=== PATIENT | male | born 1980 | race African-American/Black ===

== ENCOUNTER 2017-11-20 05:52 | Emergency (ER) | payer MEDICAID ==
[~2017-11-20] VITALS: Ht 180.3 cm; Wt 103.2 kg
[2017-11-20] MEDS ORDERED: IBUPROFEN 600MG TABLET PO ONE (07:00)
[2017-11-20 07:22] LABS: BASOPHILS % 0.3 % (0.0-2.0); EOSINOPHILS % 2.3 % (0.0-5.0); HEMATOCRIT. 37.2 % (42.0-52.0); HEMOGLOBIN. 12.5 g/dL (14.0-18.0); LYMPHOCYTES % 24.7 % (20.0-50.0); MEAN CORPUSCULAR HEMOGLOBIN 28.9 pg (28.0-32.0); MEAN PLATELET VOLUME 8.6 fl (7.4-10.4); MONOCYTES % 10.6 % (2.0-8.0); NEUTROPHILS % 62.1 % (40.0-76.0); PLATELET 239 x1000/uL (130-400); RED BLOOD CELL COUNT 4.33 mill/uL (4.7-6.1); RED CELL DISTRIBUTION WIDTH 14.2 % (11.6-14.6)
[2017-11-20 07:27] LABS: CHLORIDE 106 mEq/L (98-107)
[2017-11-20] MEDS ORDERED: ONDANSETRON 4MG ODT PO ONE (08:00)
[2017-11-20] MEDS ORDERED: MORPHINE SULFATE 10 MG/ML CPJ IM ONE (08:00)
[2017-11-20 10:24] VITALS: BP 120/75
== END 2017-11-20 10:31 | disposition home or self-care (01) ==
LOC: ER 05:58
DX: K52.9 Noninfective gastroenteritis and colitis, unspecified (principal); F17.200 Nicotine dependence, unspecified, uncomplicated
CPT/HCPCS: 36415; 74176; 80053; 83690; 85025; 96372; 99285; J2270; Q0162; Z7610

== ENCOUNTER 2018-03-06 14:33 | Emergency (ER) | payer MEDICAID ==
[~2018-03-06] VITALS: Ht 180.3 cm; Wt 100.0 kg
[2018-03-06] MEDS ORDERED: PREDNISONE 20MG TABLET PO STA (16:01)
[2018-03-06] MEDS ORDERED: IBUPROFEN 800MG TABLET PO ONE (16:15)
[2018-03-06] MEDS ORDERED: IPRATROPIUM/ALBUTEROL 0.5-3(2.5)MG/3ML NEB HHN ONE (16:15)
[2018-03-06] MEDS ORDERED: LEVOFLOXACIN 500MG TABLET PO ONE (16:15)
[2018-03-06 17:30] VITALS: BP 130/84
== END 2018-03-06 17:48 | disposition home or self-care (01) ==
LOC: ER 14:33
DX: R07.9 Chest pain, unspecified (principal); J40 Bronchitis, not specified as acute or chronic; F17.200 Nicotine dependence, unspecified, uncomplicated
CPT/HCPCS: 71045; 93005; 94640; 99284; J7512; J7620

== ENCOUNTER 2018-05-05 06:49 | Emergency (ER) | payer MEDICAID ==
[~2018-05-05] VITALS: Ht 177.8 cm; Wt 102.6 kg
[2018-05-05] MEDS ORDERED: IBUPROFEN 600MG TABLET PO ONE (09:15)
[2018-05-05 11:22] LABS: CLARITY URINE CLEAR (CLEAR); COLOR URINE YELLOW (YELLOW); KETONES URINE NEGATIVE (NEGATIVE); LEUKOCYTE ESTERASE URINE NEGATIVE (NEGATIVE); NITRITE URINE NEGATIVE (NEGATIVE); OCCULT BLOOD URINE NEGATIVE (NEGATIVE); PH URINE 6.5 (4.5-8.0); PROTEIN URINE NEGATIVE (NEGATIVE); SPECIFIC GRAVITY URINE 1.003 (1.005-1.030); UROBILINOGEN URINE 0.2 E.U./dL (0.2-1.0)
[2018-05-05 12:16] VITALS: BP 133/89
== END 2018-05-05 12:18 | disposition home or self-care (01) ==
LOC: ER 07:58
DX: M62.830 Muscle spasm of back (principal)
CPT/HCPCS: 99283

== ENCOUNTER 2018-05-27 23:26 | Emergency (ER) | payer MEDICAID ==
[~2018-05-27] VITALS: Ht 177.8 cm; Wt 130.0 kg
[2018-05-28 04:11] LABS: CHLORIDE 103 mEq/L (98-107)
[2018-05-28 04:12] LABS: BASOPHILS % 0.2 % (0.0-2.0); EOSINOPHILS % 0.6 % (0.0-5.0); HEMATOCRIT. 41.9 % (42.0-52.0); HEMOGLOBIN. 13.9 g/dL (14.0-18.0); LYMPHOCYTES % 27.5 % (20.0-50.0); MEAN CORPUSCULAR HEMOGLOBIN 29.3 pg (28.0-32.0); MEAN CORPUSCULAR VOLUME 88.4 fL (80.0-94.0); MEAN PLATELET VOLUME 9.5 fl (7.4-10.4); MONOCYTES % 8.7 % (2.0-8.0); PLATELET 265 x1000/uL (130-400); RED BLOOD CELL COUNT 4.74 mill/uL (4.7-6.1); RED CELL DISTRIBUTION WIDTH 14.4 % (11.6-14.6)
[2018-05-28 05:14] VITALS: BP 127/74
== END 2018-05-28 05:31 | disposition home or self-care (01) ==
LOC: ER 23:26
DX: R07.89 Other chest pain (principal); F17.210 Nicotine dependence, cigarettes, uncomplicated; Z71.6 Tobacco abuse counseling
CPT/HCPCS: 36415; 71045; 84484; 85379; 99284; 99406

== ENCOUNTER 2019-01-30 12:27 | Emergency (ER) | payer MEDICAID ==
[~2019-01-30] VITALS: Ht 177.8 cm; Wt 74.0 kg
[2019-01-30] MEDS ORDERED: ACETAMINOPHEN 325MG TABLET PO STA (15:10)
[2019-01-30 16:50] VITALS: BP 138/87
== END 2019-01-30 17:38 | disposition home or self-care (01) ==
LOC: ER 12:27
DX: R07.2 Precordial pain (principal)
CPT/HCPCS: 71045; 99283

== ENCOUNTER 2019-11-27 06:09 | Emergency (ER) | payer MEDICAID ==
[~2019-11-27] VITALS: Ht 177.8 cm; Wt 86.0 kg
[2019-11-27 06:14] VITALS: BP 140/100
== END 2019-11-27 06:57 | disposition home or self-care (01) ==
LOC: ER 06:09
DX: H11.32 Conjunctival hemorrhage, left eye (principal); R03.0 Elevated blood-pressure reading, without diagnosis of hypertension; Z87.828 Personal history of other (healed) physical injury and trauma
CPT/HCPCS: 99281; 99282

== ENCOUNTER 2019-12-10 06:36 | Emergency (ER) | payer MEDICAID ==
[~2019-12-10] VITALS: Ht 180.3 cm; Wt 82.0 kg
[2019-12-10 06:49] VITALS: BP 137/93
[2019-12-10] MEDS ORDERED: IBUPROFEN 600MG TABLET PO ONE (07:45)
== END 2019-12-10 08:09 | disposition home or self-care (01) ==
LOC: ER 06:36
DX: R19.7 Diarrhea, unspecified (principal); M79.18 Myalgia, other site
CPT/HCPCS: 99282

== ENCOUNTER 2020-01-07 09:19 | Emergency (ER) | payer MEDICAID ==
[~2020-01-07] VITALS: Ht 180.3 cm; Wt 91.0 kg
[2020-01-07] MEDS ORDERED: IBUPROFEN 600MG TABLET PO STA (09:47)
[2020-01-07 10:36] LABS: BASOPHILS % 0.5 % (0.0-2.0); EOSINOPHILS % 0.4 % (0.0-5.0); HEMATOCRIT. 41.3 % (42.0-52.0); HEMOGLOBIN. 14.5 g/dL (14.0-18.0); LYMPHOCYTES % 35.1 % (20.0-50.0); MEAN CORPUSCULAR HEMOGLOBIN 33.7 pg (28.0-32.0); MEAN CORPUSCULAR VOLUME 96.3 fL (80.0-94.0); MEAN PLATELET VOLUME 8.9 fl (7.4-10.4); PLATELET 204 x1000/uL (130-400); RED BLOOD CELL COUNT 4.29 mill/uL (4.7-6.1); RED CELL DISTRIBUTION WIDTH 12.6 % (11.6-14.6)
[2020-01-07 10:43] LABS: CHLORIDE 99 mEq/L (98-107)
[2020-01-07 10:48] LABS: ETHANOL BLOOD 96 mg/dL
[2020-01-07 11:07] LABS: *AMPHETAMINES SCREEN URINE NEGATIVE (NEGATIVE); *BARBITURATES SCREEN URINE NEGATIVE (NEGATIVE); *BENZODIAZEPINES SCREEN URINE NEGATIVE (NEGATIVE); *COCAINE SCREEN URINE NEGATIVE (NEGATIVE); METHADONE URINE SCREEN NEGATIVE (NEGATIVE); OPIATES URINE SCREEN NEGATIVE (NEGATIVE)
[2020-01-07 11:08] LABS: CANNABINOID URINE SCREEN PRESUMTIVE POSITIVE (NEGATIVE); PHENCYCLIDINE URINE SCREEN NEGATIVE (NEGATIVE)
[2020-01-07 12:24] VITALS: BP 146/96
== END 2020-01-07 12:31 | disposition home or self-care (01) ==
LOC: ER 09:19
DX: J45.909 Unspecified asthma, uncomplicated (principal)
CPT/HCPCS: 36415; 71045; 80053; 80305; 80320; 84484; 85025; 93005; 99285; G0480

== ENCOUNTER 2020-01-07 17:55 | Emergency (ER) | payer MEDICAID ==
[~2020-01-07] VITALS: Ht 172.7 cm; Wt 75.0 kg
[2020-01-07 18:22] VITALS: BP 173/114
== END 2020-01-07 19:15 | disposition home or self-care (01) ==
LOC: ER 17:55
DX: I10 Essential (primary) hypertension (principal); J45.909 Unspecified asthma, uncomplicated
CPT/HCPCS: 93005; 99283

== ENCOUNTER 2020-01-08 05:35 | Inpatient (IN) | payer MEDICAID ==
[~2020-01-08] VITALS: Ht 177.8 cm; Wt 73.9 kg
[2020-01-08] MEDS ORDERED: SODIUM CHLORIDE 0.9% 1,000 ML IV ONE (06:22)
[2020-01-08] MEDS ORDERED: CLONIDINE 0.1MG TABLET PO ONE (06:30)
[2020-01-08] MEDS ORDERED: ASPIRIN 81MG TABLET PO ONE (06:30)
[2020-01-08] MEDS ORDERED: NITROGLYCERIN 0.4MG TABLET SL SL PRN (06:30)
[2020-01-08 06:47] LABS: BASOPHILS % 0.4 % (0.0-2.0); EOSINOPHILS % 0.4 % (0.0-5.0); HEMATOCRIT. 41.4 % (42.0-52.0); HEMOGLOBIN. 14.5 g/dL (14.0-18.0); LYMPHOCYTES % 24.3 % (20.0-50.0); MEAN CORPUSCULAR HEMOGLOBIN 33.4 pg (28.0-32.0); MEAN CORPUSCULAR VOLUME 95.5 fL (80.0-94.0); MEAN PLATELET VOLUME 8.5 fl (7.4-10.4); MONOCYTES % 12.3 % (2.0-8.0); NEUTROPHILS % 62.6 % (40.0-76.0); PLATELET 170 x1000/uL (130-400); RED BLOOD CELL COUNT 4.33 mill/uL (4.7-6.1); RED CELL DISTRIBUTION WIDTH 12.8 % (11.6-14.6)
[2020-01-08 06:54] LABS: CHLORIDE 101 mEq/L (98-107)
[2020-01-08 06:57] LABS: ETHANOL BLOOD < 10 mg/dL
[2020-01-08 07:01] LABS: *AMPHETAMINES SCREEN URINE NEGATIVE (NEGATIVE); *BARBITURATES SCREEN URINE NEGATIVE (NEGATIVE); *BENZODIAZEPINES SCREEN URINE NEGATIVE (NEGATIVE); *COCAINE SCREEN URINE NEGATIVE (NEGATIVE); METHADONE URINE SCREEN NEGATIVE (NEGATIVE)
[2020-01-08 07:02] LABS: CANNABINOID URINE SCREEN NEGATIVE (NEGATIVE); OPIATES URINE SCREEN NEGATIVE (NEGATIVE); PHENCYCLIDINE URINE SCREEN NEGATIVE (NEGATIVE)
[2020-01-08 09:02] LABS: D-DIMER 0.41 mg/L FEU (<0.50); INR 1.2; PARTIAL THROMBOPLASTIN TIME 26.8 sec (23.4-31.0); PROTHROMBIN TIME 12.3 sec (9.6-11.0)
[2020-01-08] MEDS ORDERED: LORAZEPAM 0.5MG TABLET PO PRN (09:45)
[2020-01-08] MEDS ORDERED: IPRATROPIUM/ALBUTEROL 0.5-3(2.5)MG/3ML NEB ORI PRN (09:45)
[2020-01-08] MEDS ORDERED: ZOLPIDEM TARTRATE 5MG TABLET PO PRN (09:45)
[2020-01-08] MEDS ORDERED: GUAIFENESIN 200MG/10ML SUGAR FREE UDC PO PRN (09:45)
[2020-01-08] MEDS ORDERED: HALOPERIDOL LACTATE 5MG/ML VIAL IM PRN (09:45)
[2020-01-08] MEDS ORDERED: CLONIDINE 0.1MG TABLET PO PRN (09:45)
[2020-01-08] MEDS ORDERED: ONDANSETRON HCL 4MG/2ML INJ IV PRN (09:45)
[2020-01-08] MEDS ORDERED: KETOROLAC 15MG/ML VIAL IV PRN (09:45)
[2020-01-08] MEDS ORDERED: ACETAMINOPHEN 325MG TABLET PO PRN ×2 (09:45)
[2020-01-08] MEDS ORDERED: DOCUSATE SODIUM 100MG CAPSULE PO PRN (09:45)
[2020-01-08] MEDS ORDERED: MAGNESIUM/ALUMINUM HYDROXIDE/SIMETHICONE 30ML UDC PO PRN (09:45)
[2020-01-08] MEDS ORDERED: NA PHOS,M-B/NA PHOS,DI-BA ENEMA 118ML PR PRN (09:45)
[2020-01-08] MEDS ORDERED: ENOXAPARIN 40MG/0.4ML SYR SUBCUT SCH (10:00)
[2020-01-08 11:46] VITALS: BP 134/90
[2020-01-08 12:00] VITALS: BP 167/103
[2020-01-08] MEDS: DILTIAZEM HCL 60MG TABLET PO SCH ×2 (12:35→17:50)
[2020-01-08 16:00] VITALS: BP 147/106
[2020-01-08 16:42] LABS: CREATINE KINASE MB FRACTION < 1.0 ng/mL (0.5-3.6)
[2020-01-08 16:52] LABS: CREATINE KINASE 1245 IU/L (39-308)
[2020-01-08] MEDS ORDERED: POTASSIUM CHLORIDE 20MEQ/PACKET PO SCH (17:00)
[2020-01-08 20:00] VITALS: BP 138/96
[2020-01-08] MEDS ORDERED: METOPROLOL TARTRATE 25MG TABLET PO SCH (21:00)
[2020-01-08] MEDS ORDERED: FAMOTIDINE 20MG TABLET PO SCH (21:00)
[2020-01-09] MEDS ORDERED: ASPIRIN 325MG EC TABLET PO SCH (09:00)
== END 2020-01-08 20:15 | disposition left against medical advice (07) | DRG 207 ==
LOC: ER 05:35 → 8WST 08:09 → EDBEDREQ 08:12 → EDBEDREQTM 08:12 → ENRESERV 10:03
PROVIDERS: ADMIT Internal Medicine; ATTEND Internal Medicine
DX: R00.2 Palpitations (principal); R07.9 Chest pain, unspecified; E87.6 Hypokalemia; E87.1 Hypo-osmolality and hyponatremia; J45.909 Unspecified asthma, uncomplicated; Z53.29 Procedure and treatment not carried out because of patient's decision for other reasons; R79.89 Other specified abnormal findings of blood chemistry; R74.8 Abnormal levels of other serum enzymes; F41.9 Anxiety disorder, unspecified; I10 Essential (primary) hypertension; Z82.49 Family history of ischemic heart disease and other diseases of the circulatory system
CPT/HCPCS: 36415; 71045; 80053; 80061; 80305; 80320; 82550; 82553; 83036; 83880; 84484; 85025; 85379; 93005; 93970; 99285; J1650; J1885; J7030; G0480

== ENCOUNTER 2020-01-13 22:05 | Emergency (ER) | payer MEDICAID ==
[~2020-01-13] VITALS: Ht 177.8 cm; Wt 84.0 kg
[2020-01-13] MEDS ORDERED: IBUPROFEN 600MG TABLET PO STA (22:37)
[2020-01-13] MEDS ORDERED: SODIUM CHLORIDE 0.9% 1,000 ML IV ONE (22:37)
[2020-01-13 22:48] LABS: HEMATOCRIT. 34.4 % (42.0-52.0); HEMOGLOBIN. 11.8 g/dL (14.0-18.0); MEAN CORPUSCULAR HEMOGLOBIN 33.6 pg (28.0-32.0); MEAN CORPUSCULAR VOLUME 98.1 fL (80.0-94.0); MEAN PLATELET VOLUME 9.1 fl (7.4-10.4); PLATELET 191 x1000/uL (130-400); RED BLOOD CELL COUNT 3.51 mill/uL (4.7-6.1); RED CELL DISTRIBUTION WIDTH 12.9 % (11.6-14.6)
[2020-01-13 22:52] LABS: CHLORIDE 106 mEq/L (98-107)
[2020-01-13 22:57] LABS: ETHANOL BLOOD < 10 mg/dL
[2020-01-13 23:21] LABS: PLATELET ESTIMATE NORMAL
[2020-01-13 23:23] LABS: CLARITY URINE CLEAR (CLEAR); COLOR URINE YELLOW (YELLOW); KETONES URINE NEGATIVE (NEGATIVE); LEUKOCYTE ESTERASE URINE NEGATIVE (NEGATIVE); NITRITE URINE NEGATIVE (NEGATIVE); OCCULT BLOOD URINE NEGATIVE (NEGATIVE); PH URINE 5.5 (4.5-8.0); PROTEIN URINE NEGATIVE (NEGATIVE); SPECIFIC GRAVITY URINE 1.005 (1.005-1.030); UROBILINOGEN URINE 0.2 E.U./dL (0.2-1.0)
[2020-01-13 23:27] LABS: CREATINE KINASE 202 IU/L (39-308)
[2020-01-13 23:39] LABS: *AMPHETAMINES SCREEN URINE NEGATIVE (NEGATIVE); *BARBITURATES SCREEN URINE NEGATIVE (NEGATIVE); *COCAINE SCREEN URINE NEGATIVE (NEGATIVE); CANNABINOID URINE SCREEN NEGATIVE (NEGATIVE); PHENCYCLIDINE URINE SCREEN NEGATIVE (NEGATIVE)
[2020-01-13 23:40] LABS: METHADONE URINE SCREEN NEGATIVE (NEGATIVE); OPIATES URINE SCREEN NEGATIVE (NEGATIVE)
[2020-01-13 23:41] LABS: *BENZODIAZEPINES SCREEN URINE NEGATIVE (NEGATIVE)
[2020-01-14 01:21] VITALS: BP 127/70
== END 2020-01-14 01:27 | disposition home or self-care (01) ==
LOC: ER 22:05
DX: R07.89 Other chest pain (principal); J45.909 Unspecified asthma, uncomplicated
CPT/HCPCS: 36415; 71045; 80053; 80305; 80320; 81003; 82550; 84484; 85025; 93005; 99285; J7030; G0480

== ENCOUNTER 2020-02-20 18:31 | Emergency (ER) | payer OTHER, MEDICAID ==
[~2020-02-20] VITALS: Ht 180.3 cm; Wt 85.0 kg
[2020-02-20] MEDS ORDERED: ASPIRIN 81MG TABLET PO ONE (22:30)
[2020-02-20 23:21] LABS: BASOPHILS % 0.4 % (0.0-2.0); HEMATOCRIT. 40.4 % (42.0-52.0); LYMPHOCYTES % 23.4 % (20.0-50.0); MEAN CORPUSCULAR HEMOGLOBIN 31.7 pg (28.0-32.0); MEAN CORPUSCULAR VOLUME 91.4 fL (80.0-94.0); MEAN PLATELET VOLUME 7.8 fl (7.4-10.4); MONOCYTES % 9.2 % (2.0-8.0); PLATELET 265 x1000/uL (130-400); RED BLOOD CELL COUNT 4.42 mill/uL (4.7-6.1); RED CELL DISTRIBUTION WIDTH 13.4 % (11.6-14.6)
[2020-02-20 23:27] LABS: CHLORIDE 103 mEq/L (98-107)
[2020-02-20 23:36] LABS: CREATINE KINASE 211 IU/L (39-308)
[2020-02-21] MEDS ORDERED: POTASSIUM CHLORIDE 20MEQ TABLET SR PO SCH (00:30)
[2020-02-21] MEDS ORDERED: CLONIDINE 0.2MG TABLET PO ONE (01:00)
[2020-02-21 02:26] VITALS: BP 140/91
== END 2020-02-21 02:29 | disposition home or self-care (01) ==
LOC: ER 18:43
DX: I10 Essential (primary) hypertension (principal); R07.89 Other chest pain; F12.10 Cannabis abuse, uncomplicated
CPT/HCPCS: 36415; 71045; 80053; 82550; 83880; 84484; 85025; 93005; 99285; Z7610

== ENCOUNTER 2020-03-12 05:40 | Emergency (ER) | payer MEDICAID, OTHER ==
[2020-03-12] MEDS ORDERED: ONDANSETRON 4MG ODT PO ONE (07:30)
[2020-03-12 08:41] VITALS: BP 148/91
== END 2020-03-12 08:55 | disposition home or self-care (01) ==
LOC: ER 05:40
DX: K29.70 Gastritis, unspecified, without bleeding (principal); I10 Essential (primary) hypertension; F12.10 Cannabis abuse, uncomplicated; R06.02 Shortness of breath; R11.0 Nausea; R07.89 Other chest pain
CPT/HCPCS: 93005; 99283; Q0162

== ENCOUNTER 2020-03-18 00:33 | Emergency (ER) | payer OTHER ==
[~2020-03-18] VITALS: Ht 180.3 cm; Wt 84.0 kg
[2020-03-18 03:27] LABS: BASOPHILS % 0.3 % (0.0-2.0); EOSINOPHILS % 0.7 % (0.0-5.0); HEMATOCRIT. 38.2 % (42.0-52.0); HEMOGLOBIN. 12.7 g/dL (14.0-18.0); LYMPHOCYTES % 24.2 % (20.0-50.0); MEAN CORPUSCULAR HEMOGLOBIN 30.6 pg (28.0-32.0); MEAN CORPUSCULAR VOLUME 91.8 fL (80.0-94.0); MEAN PLATELET VOLUME 9.2 fl (7.4-10.4); MONOCYTES % 10.2 % (2.0-8.0); NEUTROPHILS % 64.6 % (40.0-76.0); PLATELET 196 x1000/uL (130-400); RED BLOOD CELL COUNT 4.16 mill/uL (4.7-6.1); RED CELL DISTRIBUTION WIDTH 14.4 % (11.6-14.6)
[2020-03-18 03:35] LABS: CHLORIDE 103 mEq/L (98-107)
[2020-03-18 04:45] VITALS: BP 129/80
== END 2020-03-18 05:53 | disposition home or self-care (01) ==
LOC: ER 00:33
DX: R07.89 Other chest pain (principal); I10 Essential (primary) hypertension
CPT/HCPCS: 36415; 71045; 80053; 84484; 85025; 93005; 99285

== ENCOUNTER 2020-04-07 14:56 | Emergency (ER) | payer OTHER ==
[~2020-04-07] VITALS: Ht 175.3 cm; Wt 89.0 kg
[2020-04-07] MEDS ORDERED: ACETAMINOPHEN 325MG TABLET PO STA (15:11)
[2020-04-07 15:31] LABS: BASOPHILS % 0.4 % (0.0-2.0); EOSINOPHILS % 0.7 % (0.0-5.0); HEMOGLOBIN. 13.7 g/dL (14.0-18.0); LYMPHOCYTES % 23.9 % (20.0-50.0); MEAN CORPUSCULAR HEMOGLOBIN 30.9 pg (28.0-32.0); MEAN CORPUSCULAR VOLUME 89.8 fL (80.0-94.0); MEAN PLATELET VOLUME 8.5 fl (7.4-10.4); MONOCYTES % 6.8 % (2.0-8.0); NEUTROPHILS % 68.2 % (40.0-76.0); PLATELET 293 x1000/uL (130-400); RED BLOOD CELL COUNT 4.45 mill/uL (4.7-6.1); RED CELL DISTRIBUTION WIDTH 15.1 % (11.6-14.6)
[2020-04-07 15:37] LABS: CHLORIDE 102 mEq/L (98-107)
[2020-04-07 15:50] VITALS: BP 151/97
== END 2020-04-07 17:43 | disposition home or self-care (01) ==
LOC: ER 14:56
DX: M79.602 Pain in left arm (principal); R07.89 Other chest pain; I10 Essential (primary) hypertension; I07.1 Rheumatic tricuspid insufficiency; F16.10 Hallucinogen abuse, uncomplicated
CPT/HCPCS: 36415; 71045; 80053; 84484; 85025; 85379; 93005; 93971; 99285

== ENCOUNTER 2020-09-17 02:10 | Emergency (ER) | payer MEDICAID, OTHER ==
[~2020-09-17] VITALS: Ht 180.3 cm; Wt 98.0 kg
[2020-09-17] MEDS ORDERED: FAMOTIDINE 20MG/2ML VIAL IV STA (03:00)
[2020-09-17] MEDS ORDERED: MORPHINE SULFATE 4 MG/ML CPJ (NOT FOR IM USE) IV STA (03:00)
[2020-09-17] MEDS ORDERED: ONDANSETRON HCL 4MG/2ML INJ IV STA (03:00)
[2020-09-17] MEDS ORDERED: SODIUM CHLORIDE 0.9% 1,000 ML IV ONE (03:00)
[2020-09-17 03:20] LABS: BASOPHILS % 0.2 % (0.0-2.0); EOSINOPHILS % 0.8 % (0.0-5.0); HEMATOCRIT. 38.2 % (42.0-52.0); HEMOGLOBIN. 13.3 g/dL (14.0-18.0); MEAN CORPUSCULAR HEMOGLOBIN 32.4 pg (28.0-32.0); MEAN PLATELET VOLUME 8.9 fl (7.4-10.4); MONOCYTES % 9.3 % (2.0-8.0); NEUTROPHILS % 60.7 % (40.0-76.0); PLATELET 166 x1000/uL (130-400); RED BLOOD CELL COUNT 4.11 mill/uL (4.7-6.1); RED CELL DISTRIBUTION WIDTH 13.2 % (11.6-14.6)
[2020-09-17 03:21] LABS: CLARITY URINE CLEAR (CLEAR); COLOR URINE YELLOW (YELLOW); KETONES URINE NEGATIVE (NEGATIVE); LEUKOCYTE ESTERASE URINE TRACE (NEGATIVE); NITRITE URINE NEGATIVE (NEGATIVE); OCCULT BLOOD URINE NEGATIVE (NEGATIVE); PH URINE 5.5 (4.5-8.0); PROTEIN URINE NEGATIVE (NEGATIVE); SPECIFIC GRAVITY URINE 1.009 (1.005-1.030); UROBILINOGEN URINE 0.2 E.U./dL (0.2-1.0)
[2020-09-17 03:21] LABS: CHLORIDE 104 mEq/L (98-107)
[2020-09-17 03:25] LABS: ETHANOL BLOOD < 10 mg/dL; INR 1.1; PROTHROMBIN TIME 11.9 sec (9.6-11.0)
[2020-09-17] MEDS ORDERED: POTASSIUM CHLORIDE 20MEQ TABLET SR PO ONE (03:30)
[2020-09-17] MEDS ORDERED: IOHEXOL-300 100 ML BOTTLE ONE (03:55)
[2020-09-17] MEDS ORDERED: KETOROLAC 30MG/ML VIAL IV ONE (04:00)
[2020-09-17 05:30] VITALS: BP 143/89
[2020-09-17] MEDS ORDERED: FAMO-123 PO (05:36)
== END 2020-09-17 06:00 | disposition home or self-care (01) ==
LOC: ER 02:10
DX: K29.20 Alcoholic gastritis without bleeding (principal); Y90.0 Blood alcohol level of less than 20 mg/100 ml; F10.188 Alcohol abuse with other alcohol-induced disorder; Z87.891 Personal history of nicotine dependence; F12.90 Cannabis use, unspecified, uncomplicated; Z71.41 Alcohol abuse counseling and surveillance of alcoholic
CPT/HCPCS: 36415; 74177; 80053; 80320; 81003; 83690; 85025; 85610; 93005; 96361; 96374; 96375; 99285; J1885; J2270; J2405; J3490; J7030; Q9967; G0480

== ENCOUNTER 2020-09-19 10:29 | Emergency (ER) | payer MEDICAID, OTHER ==
[~2020-09-19] VITALS: Ht 177.8 cm; Wt 100.0 kg
[~2020-09-19 10:29] MED LIST: FAMO-123 PO
[2020-09-19] MEDS ORDERED: FAMO-135 MT (10:59)
[2020-09-19 11:07] VITALS: BP 133/93
== END 2020-09-19 11:22 | disposition home or self-care (01) ==
LOC: ER 10:41
DX: R25.2 Cramp and spasm (principal); R42 Dizziness and giddiness; F10.282 Alcohol dependence with alcohol-induced sleep disorder; R03.0 Elevated blood-pressure reading, without diagnosis of hypertension; Z71.41 Alcohol abuse counseling and surveillance of alcoholic
CPT/HCPCS: 93005; 99283

== ENCOUNTER 2020-11-19 07:40 | Emergency (ER) | payer OTHER ==
[~2020-11-19] VITALS: Ht 180.3 cm; Wt 103.0 kg
[~2020-11-19 07:40] MED LIST changes: +FAMO-135 MT
[2020-11-19] MEDS ORDERED: ONDANSETRON HCL 4MG/2ML INJ IV STA (08:13)
[2020-11-19] MEDS ORDERED: SODIUM CHLORIDE 0.9% 1,000 ML IV ONE (08:15)
[2020-11-19] MEDS ORDERED: CHLORDIAZEPOXIDE 25MG CAPSULE PO ONE (08:15)
[2020-11-19 08:30] LABS: BASOPHILS % 0.2 % (0.0-2.0); EOSINOPHILS % 1.2 % (0.0-5.0); HEMATOCRIT. 38.3 % (42.0-52.0); HEMOGLOBIN. 13.5 g/dL (14.0-18.0); LYMPHOCYTES % 26.9 % (20.0-50.0); MEAN CORPUSCULAR HEMOGLOBIN 31.9 pg (28.0-32.0); MEAN CORPUSCULAR VOLUME 90.5 fL (80.0-94.0); MEAN PLATELET VOLUME 8.5 fl (7.4-10.4); MONOCYTES % 10.6 % (2.0-8.0); NEUTROPHILS % 61.1 % (40.0-76.0); PLATELET 173 x1000/uL (130-400); RED BLOOD CELL COUNT 4.24 mill/uL (4.7-6.1); RED CELL DISTRIBUTION WIDTH 13.6 % (11.6-14.6)
[2020-11-19 08:35] LABS: CHLORIDE 102 mEq/L (98-107)
[2020-11-19] MEDS ORDERED: MORPHINE SULFATE 4 MG/ML CPJ (NOT FOR IM USE) IV NR (09:00)
[2020-11-19] MEDS ORDERED: ONDANSETRON HCL 4MG/2ML INJ IV NR (09:00)
[2020-11-19 13:55] VITALS: BP 138/90
[2020-11-19] MEDS ORDERED: IOHEXOL-300 100 ML BOTTLE ONE (13:56)
== END 2020-11-19 14:09 | disposition home or self-care (01) ==
LOC: ER 07:40
DX: K42.9 Umbilical hernia without obstruction or gangrene (principal); J98.11 Atelectasis; R00.2 Palpitations; R16.0 Hepatomegaly, not elsewhere classified; I10 Essential (primary) hypertension
CPT/HCPCS: 36415; 71045; 74177; 80053; 83690; 83880; 84484; 85025; 85610; 93005; 96361; 96374; 96375; 99285; J2270; J2405; J7030; Q9967; Z7610